=== PATIENT | male | born 1940 | race Caucasian/White ===

== ENCOUNTER 2020-11-12 16:04 | Emergency (ER) | payer MEDICARE, OTHER ==
[~2020-11-12 16:04] MED LIST: 8 HOUR650 MG PO; ADALAT CC30 MG PO; ADDERALL 20 MG20 MG PO; BICALUTAMIDE50 MG PO; CARBIDOPA-LEVO1 EAC6 PO; EFFEXOR XR150 MG PO; IBUPROFEN400 MG PO; LISINOPRIL-HCT1 EAC2 PO; MYSOLINE250 MG PO; PERCOCET 5-3251 EACH PO; PRINIVIL20 MG PO; SINGULAIR10 MG PO; VITAMIN D2000 UNI1 PO; ZOCOR40 MG PO
[2020-11-12 16:56] LABS: BASOPHIL 0.3 % (0-2); EOSINOPHIL 0.2 % (0-7); HCT 31.3 % (42.0-52.0); HGB 10.5 g/dl (13.2-18.0); LYMPHOCYTE 12.6 % (15-48); MCH 31.8 pg (25.0-31.0); MCHC 33.5 g/dL (32.0-36.0); MCV 94.8 fL (78.0-100.0); MONOCYTE 13.6 % (0-12); MPV 9.8 fL (6.0-9.5); NEUTROPHIL 72.9 % (41-80); NRBC 0; PLT 306 K/uL (150-400); RDW 15.4 % (11.5-14.0); WBC 9.3 K/uL (4.0-10.5)
[2020-11-12 17:06] LABS: INR 1.11 (0.9-1.2); PROTHROMBIN TIME 13.6 SECONDS (11.4-13.6); PTT 29.9 SECONDS (22.2-34.7)
[2020-11-12 17:17] LABS: ALBUMIN 2.3 g/dL (3.4-5.0); BILIRUBIN - TOTAL 0.3 mg/dL (0.2-1.0); BUN/CREAT RATIO (CALC) 25.8 RATIO; CREATININE 0.66 mg/dL (0.67-1.17); GLOBULIN (CALCULATION) 3.2 g/dL; POTASSIUM 3.1 mmol/L (3.5-5.1); TOTAL PROTEIN 5.5 g/dL (6.4-8.2)
[2020-11-12 17:20] LABS: LACTIC ACID 1.1 mmol/L (0.4-1.9)
[2020-11-12 17:49] LABS: CORONAVIRUS 2019 SARS-COV-2 NEGATIVE (NEGATIVE); INFLUENZA A NAA NEGATIVE (NEGATIVE)
[2020-11-12 18:59] LABS: BILIRUBIN 1+ mg/dL (NEGATIVE); BLOOD NEGATIVE Ery/uL (NEGATIVE); CLARITY CLEAR (CLEAR); COLOR YELLOW (YELLOW); GLUCOSE (U) NORMAL (NORMAL); LEUKOCYTES NEGATIVE Leu/uL (NEGATIVE); NITRITE NEGATIVE (NEGATIVE); PROTEIN TRACE (LOW) mg/dL (NEGATIVE); SPECIFIC GRAVITY 1.025 (1.001-1.030)
[2020-11-12 19:04] LABS: SQUAMOUS EPITHELIAL CELLS RARE
== END 2020-11-12 23:00 | disposition other institution (70) ==
LOC: FER 16:04
PROVIDERS: Emergency Medicine
DX: R19.7 Diarrhea, unspecified (principal); I47.2 Ventricular tachycardia; I10 Essential (primary) hypertension; G20 Parkinson's disease; Z85.46 Personal history of malignant neoplasm of prostate; Z85.038 Personal history of other malignant neoplasm of large intestine; Z87.891 Personal history of nicotine dependence; Z88.8 Allergy status to other drugs, medicaments and biological substances; Z79.899 Other long term (current) drug therapy; Z20.822 Contact with and (suspected) exposure to COVID-19
CPT/HCPCS: 36415; 70450; 71045; 71275; 72193; 80053; 81001; 83605; 83735; 84484; 85025; 85610; 85730; 87040; 87088; 93005; J7030; M0239; Q9967; U0002